=== PATIENT | female | born 1980 | race Caucasian/White ===

== ENCOUNTER 2019-12-04 11:06 | Emergency (ER) | payer OTHER ==
[~2019-12-04] VITALS: Ht 157.5 cm; Wt 93.0 kg
[~2019-12-04 11:06] MED LIST: AMOX1TAB12 PO
[2019-12-04] MEDS ORDERED: TIROSINT75 MCG (11:16)
[2019-12-04] MEDS ORDERED: TIROSINT100 MCG (11:17)
[2019-12-04] MEDS ORDERED: KETO10TA2 PO (14:10)
[2019-12-04] MEDS ORDERED: NORFLEX100MG PO (14:10)
== END 2019-12-04 14:30 | disposition home or self-care (01) ==
LOC: ER 11:06
DX: M54.5 Low back pain (principal)

== ENCOUNTER 2021-04-15 11:31 | Outpatient (CLI) | payer OTHER ==
[~2021-04-15 11:31] MED LIST changes: +KETO10TA2 PO; +NORFLEX100MG PO; +TIROSINT100 MCG; +TIROSINT75 MCG
== END 2021-04-15 11:37 | disposition home or self-care (01) ==
LOC: MAMO-SONO 11:31
PROVIDERS: ATTEND Obstetrics & Gynecology
DX: N63 Unspecified lump in breast (principal); N64.59 Other signs and symptoms in breast; N64.9 Disorder of breast, unspecified

== ENCOUNTER 2021-08-18 12:14 | Outpatient (CLI) | payer OTHER | END 2021-08-18 12:20 | disposition home or self-care (01) | LOC: SONOGRAMA 12:14 | PROVIDERS: ATTEND Student in an Organized Health Care Education/Training Program | DX: E04.2 Nontoxic multinodular goiter (principal) ==